=== PATIENT | female | born 1985 | race Two or more races ===

== ENCOUNTER 2018-02-03 07:57 | Day surgery (SDC) | payer BC ==
[~2018-02-03] VITALS: Ht 154.9 cm; Wt 52.1 kg
[~2018-02-03 07:57] MED LIST: AMOX875T PO; BUPIVACAINE/PF 0.5% ONE; EPINEPHRINE 1 MG/ML, 1ML ONE; HYDR-3237 PO; LIDOCAINE/PF 0.5% ,50ML ONE
[2018-02-03] MEDS ORDERED: LACTATED RINGERS 1,000 ML IV SCH (08:02)
[2018-02-03] MEDS ORDERED: MIDAZOLAM 1 MG/ML, 2ML ONE (08:13)
[2018-02-03] MEDS ORDERED: DEXAMETHASONE 4 MG/ML, 1ML ONE (08:13)
[2018-02-03] MEDS ORDERED: KETOROLAC 30 MG/1 ML ONE ×2 (08:13)
[2018-02-03] MEDS ORDERED: PROPOFOL 10 MG/ML, 20ML ONE (08:13)
[2018-02-03] MEDS ORDERED: ONDANSETRON 2MG/ML, 2ML ONE (08:13)
[2018-02-03] MEDS ORDERED: LIDOCAINE-MPF 2% ,5ML ONE (08:13)
[2018-02-03] MEDS ORDERED: CEFAZOLIN 1,000 MG ONE (08:13)
[2018-02-03] MEDS ORDERED: FENTANYL PF 100 MCG/2ML ONE (08:13)
[2018-02-03 08:24] VITALS: BP 109/74
[2018-02-03] MEDS ORDERED: LABETALOL 5MG/ML, 20ML IV PRN (08:30)
[2018-02-03] MEDS ORDERED: PROMETHAZINE 25 MG/ML, 1ML IV PRN (08:30)
[2018-02-03] MEDS ORDERED: LORazepam 2 MG/ML, 1ML IVPush PRN (08:30)
[2018-02-03] MEDS ORDERED: FENTANYL PF 100 MCG/2ML IV PRN (08:30)
[2018-02-03] MEDS ORDERED: MIDAZOLAM 1 MG/ML, 2ML IV PRN (08:30)
[2018-02-03] MEDS ORDERED: hydrALAzine 20 MG/ML, 1ML IV PRN (08:30)
[2018-02-03] MEDS ORDERED: ALBUTEROL/IPRATROPIUM 2.5MG/0.5MG, 3 ML NPPB PRN (08:30)
[2018-02-03] MEDS ORDERED: GABAPENTIN 300 MG CAPSULE PO ONE (08:30)
[2018-02-03] MEDS ORDERED: PROMETHAZINE 12.5 MG SUPP PR PRN (08:30)
[2018-02-03] MEDS ORDERED: ALBUTEROL SULFATE 2.5 MG/3 ML NPPB PRN (08:30)
[2018-02-03] MEDS ORDERED: DIAZEPAM 5 MG/ML, 2ML IVPush PRN (08:30)
[2018-02-03] MEDS ORDERED: METOCLOPRAMIDE 5 MG/ML, 2ML IV PRN (08:30)
[2018-02-03] MEDS ORDERED: MEPERIDINE/PF 25MG/0.5ML IVPush PRN (08:30)
[2018-02-03] MEDS ORDERED: ONDANSETRON 2MG/ML, 2ML IVPush PRN (08:30)
[2018-02-03] MEDS ORDERED: OXYcodone 5 MG/5 ML ORAL.SOL UDC PO PRN (08:30)
[2018-02-03] MEDS ORDERED: morphine SULFATE 10 MG/ML, 1ML IV PRN (08:30)
[2018-02-03] MEDS ORDERED: ONDANSETRON ODT 8 MG PO ONE (08:30)
[2018-02-03] MEDS ORDERED: OXYcodone IR 5MG TABLET PO ONE (08:30)
[2018-02-03] MEDS ORDERED: SCOPOLAMINE PATCH, 1.5MG PATCH.TD72 TD ONE (08:30)
[2018-02-03] MEDS ORDERED: ACETAMINOPHEN 500 MG TABLET PO ONE (08:30)
[2018-02-03 08:32] LABS: HCG UR SG 1.023 (1.003-1.030)
[2018-02-03] MEDS ORDERED: AMOXICILLIN/CLAV 875-125MG TABLET PO SCH (09:00)
== END 2018-02-03 12:05 ==
LOC: OUT 07:57 → MERGE 16:00
PROVIDERS: ATTEND Orthopaedic Surgery
DX: S83.271A Complex tear of lateral meniscus, current injury, right knee, initial encounter (principal); X58.XXXA Exposure to other specified factors, initial encounter; Y93.89 Activity, other specified; Y92.89 Other specified places as the place of occurrence of the external cause; Y99.8 Other external cause status
CPT/HCPCS: 29881; 81025; J0171; J0690; J1100; J1885; J2001; J2250; J2405; J2704; J3010; J3490; J7120; Q0162

== ENCOUNTER 2018-02-05 20:52 | Inpatient (IN) | payer BC ==
[~2018-02-05] VITALS: Ht 154.9 cm; Wt 57.2 kg
[~2018-02-05 20:52] MED LIST changes: -BUPIVACAINE/PF 0.5% ONE; -EPINEPHRINE 1 MG/ML, 1ML ONE; -LIDOCAINE/PF 0.5% ,50ML ONE
[2018-02-05] MEDS ORDERED: ONDANSETRON ODT 4 MG ONE (21:28)
[2018-02-05] MEDS ORDERED: ONDANSETRON ODT 4 MG PO ONE (21:30)
[2018-02-05 21:38] LABS: BASOPHILS # (AUTO) 0.04 x10^3/uL (0-0.1); BASOPHILS % (AUTO) 1 % (0-1); EOSINOPHILS # (AUTO) 0.02 x10^3/uL (0-0.4); EOSINOPHILS % (AUTO) 0 % (1-7); LYMPHOCYTES # (AUTO) 1.14 x10^3/uL (1-3.4); LYMPHOCYTES % (AUTO) 21 % (22-44); MD NO; MEAN CORPUSCULAR HEMOGLOBIN 31.1 pg (27.0-34.8); MEAN CORPUSCULAR HGB CONC 34.5 g/dL (32.4-35.8); MEAN CORPUSCULAR VOLUME 90.3 fL (80-100); MEAN PLATELET VOLUME 7.5 fL (7.4-10.4); MONOCYTES # (AUTO) 0.45 x10^3/uL (0.2-0.8); MONOCYTES % (AUTO) 8 % (2-9); NEUTROPHILS # (AUTO) 3.88 x10^3/uL (1.8-6.8); NEUTROPHILS % (AUTO) 70 % (42-75); PLATELET COUNT 279 x10^3/uL (130-400); RED BLOOD COUNT 3.97 x10^6/uL (3.82-5.3); RED CELL DISTRIBUTION WIDTH 13.4 % (9.6-15.2)
[2018-02-05 21:48] LABS: ALBUMIN 3.7 g/dL (3.4-5.0); ANION GAP 9 mmol/L (5-15); CALCIUM 8.6 mg/dL (8.5-10.1); CHLORIDE 108 mmol/L (98-107)
[2018-02-05 21:52] LABS: ALKALINE PHOSPHATASE 118 U/L (45-117); BILIRUBIN,TOTAL 0.7 mg/dL (0.2-1.0); TOTAL PROTEIN 7.5 g/dL (6.4-8.2)
[2018-02-05 21:56] LABS: ALANINE AMINOTRANSFERASE 1222 U/L (12-78)
[2018-02-05 22:14] LABS: ACETAMINOPHEN < 2 mcg/mL (10-30)
[2018-02-05] MEDS ORDERED: METOCLOPRAMIDE 5 MG/ML, 2ML ONE (22:14)
[2018-02-05] MEDS ORDERED: SODIUM CHLORIDE 0.9% 1,000ML IVBOLUS ONE (22:30)
[2018-02-05] MEDS ORDERED: METOCLOPRAMIDE 5 MG/ML, 2ML IVPush ONE (22:30)
[2018-02-06] MEDS ORDERED: SODIUM CHLORIDE 0.9% 1,000 ML IV ONE (00:38)
[2018-02-06] MEDS ORDERED: MORPHINE SULFATE 4 MG/ML, 1ML ONE (00:47)
[2018-02-06] MEDS ORDERED: DOCUSATE 100 MG CAPSULE PO PRN (01:00)
[2018-02-06] MEDS ORDERED: LABETALOL 5MG/ML, 20ML IVPush PRN (01:00)
[2018-02-06] MEDS ORDERED: morphine SULFATE 10 MG/ML, 1ML IVPush PRN (01:00)
[2018-02-06] MEDS ORDERED: BISACODYL 10 MG SUPP PR PRN (01:00)
[2018-02-06] MEDS ORDERED: ONDANSETRON 2MG/ML, 2ML IVPush PRN (01:00)
[2018-02-06] MEDS ORDERED: MORPHINE SULFATE 4 MG/ML, 1ML IVPush PRN (01:00)
[2018-02-06] MEDS ORDERED: hydrALAzine 20 MG/ML, 1ML IVPush PRN (01:00)
[2018-02-06] MEDS ORDERED: POLYETHYLENE GLYCOL 17 GM PACKET PO PRN (01:00)
[2018-02-06 01:50] VITALS: BP 104/71
[2018-02-06] MEDS: HEPARIN 5,000 UNITS/ML, 1ML SQ SCH ×3 (02:30→18:26)
[2018-02-06] MEDS: OXYcodone IR 5MG TABLET PO PRN ×4 (02:31→16:51)
[2018-02-06] MEDS: SODIUM CHLORIDE 0.9% 1,000 ML IV SCH ×2 (02:32→10:38)
[2018-02-06 02:39] LABS: FREE T4 (FREE THYROXINE) 1.31 ng/dL (0.76-1.46); HEMOGLOBIN A1C 5.8 % (4.2-6.3); THYROID STIMULATING HORMONE 2.09 mIU/L (0.358-3.740)
[2018-02-06 03:24] LABS: MICROSCOPIC AUTO
[2018-02-06 03:29] LABS: CULTURE INDICATED? YES
[2018-02-06 05:45] LABS: BASOPHILS # (AUTO) 0.03 x10^3/uL (0-0.1); BASOPHILS % (AUTO) 1 % (0-1); EOSINOPHILS # (AUTO) 0.03 x10^3/uL (0-0.4); EOSINOPHILS % (AUTO) 1 % (1-7); LYMPHOCYTES # (AUTO) 2.22 x10^3/uL (1-3.4); LYMPHOCYTES % (AUTO) 35 % (22-44); MD NO; MEAN CORPUSCULAR VOLUME 91.2 fL (80-100); MEAN PLATELET VOLUME 7.7 fL (7.4-10.4); MONOCYTES # (AUTO) 0.45 x10^3/uL (0.2-0.8); MONOCYTES % (AUTO) 7 % (2-9); NEUTROPHILS # (AUTO) 3.54 x10^3/uL (1.8-6.8); NEUTROPHILS % (AUTO) 56 % (42-75); PLATELET COUNT 256 x10^3/uL (130-400); RED BLOOD COUNT 3.53 x10^6/uL (3.82-5.3); RED CELL DISTRIBUTION WIDTH 13.4 % (9.6-15.2)
[2018-02-06 05:56] LABS: CHLORIDE 112 mmol/L (98-107)
[2018-02-06 06:19] LABS: ALANINE AMINOTRANSFERASE 1091 U/L (12-78); ALBUMIN 2.9 g/dL (3.4-5.0); ALKALINE PHOSPHATASE 115 U/L (45-117); ANION GAP 8 mmol/L (5-15); BILIRUBIN,TOTAL 0.8 mg/dL (0.2-1.0); CALCIUM 7.8 mg/dL (8.5-10.1); TOTAL PROTEIN 5.9 g/dL (6.4-8.2)
[2018-02-06 07:55] VITALS: BP 99/64
[2018-02-06] MEDS: CEFTRIAXONE PMX 1GM/50ML 50 ML IV SCH (10:38)
[2018-02-06 13:25] VITALS: BP 93/59
[2018-02-06 19:21] VITALS: BP 102/59
[2018-02-06] MEDS ORDERED: DIPHENHYDRAMINE 25 MG CAPSULE PO ONE (21:30)
[2018-02-07 02:00] VITALS: BP 99/63
[2018-02-07] MEDS: HEPARIN 5,000 UNITS/ML, 1ML SQ SCH ×2 (02:43→11:14)
[2018-02-07] MEDS: OXYcodone IR 5MG TABLET PO PRN (02:45)
[2018-02-07 04:39] LABS: BASOPHILS # (AUTO) 0.03 x10^3/uL (0-0.1); BASOPHILS % (AUTO) 1 % (0-1); EOSINOPHILS # (AUTO) 0.11 x10^3/uL (0-0.4); EOSINOPHILS % (AUTO) 2 % (1-7); LYMPHOCYTES # (AUTO) 3.26 x10^3/uL (1-3.4); LYMPHOCYTES % (AUTO) 55 % (22-44); MD NO; MEAN CORPUSCULAR HEMOGLOBIN 31.9 pg (27.0-34.8); MEAN CORPUSCULAR HGB CONC 34.6 g/dL (32.4-35.8); MEAN CORPUSCULAR VOLUME 92.2 fL (80-100); MEAN PLATELET VOLUME 7.6 fL (7.4-10.4); MONOCYTES % (AUTO) 7 % (2-9); NEUTROPHILS # (AUTO) 2.18 x10^3/uL (1.8-6.8); NEUTROPHILS % (AUTO) 37 % (42-75); PLATELET COUNT 262 x10^3/uL (130-400); RED BLOOD COUNT 3.63 x10^6/uL (3.82-5.3); RED CELL DISTRIBUTION WIDTH 13.7 % (9.6-15.2)
[2018-02-07 04:54] LABS: CHLORIDE 110 mmol/L (98-107)
[2018-02-07 05:02] LABS: ALANINE AMINOTRANSFERASE 752 U/L (12-78); ALKALINE PHOSPHATASE 108 U/L (45-117); ANION GAP 7 mmol/L (5-15); BILIRUBIN,TOTAL 0.3 mg/dL (0.2-1.0); CALCIUM 8.6 mg/dL (8.5-10.1); CHOL/HDL RATIO 2.5; CHOLESTEROL, TOTAL 166 mg/dL (140-239); CREATININE 0.59 mg/dL (0.55-1.02); HDL CHOL % 40 % (28-40); HDL CHOLESTEROL (DIRECT) 66 mg/dL (40-60); LDL CHOLESTEROL,CALCULATED 83 mg/dL (54-169); LDL/HDL RATIO 1.3 (0.5-3.0); TOTAL PROTEIN 6.4 g/dL (6.4-8.2); TRIGLYCERIDES 84 mg/dL (50-200); VLDL CHOLESTEROL 17 mg/dL (0-25)
[2018-02-07] MEDS ORDERED: CEFD300C37 PO (07:54)
[2018-02-07 07:59] VITALS: BP 124/56
[2018-02-07] MEDS: CEFTRIAXONE PMX 1GM/50ML 50 ML IV SCH (09:59)
== END 2018-02-07 13:22 | disposition home or self-care (01) | DRG 918 ==
LOC: ED 22:07 → EDIP 02-06 00:38 → 4WST 02-06 01:49
PROVIDERS: ADMIT Internal Medicine; ATTEND Internal Medicine
DX: T88.59XA Other complications of anesthesia, initial encounter (principal); E44.0 Moderate protein-calorie malnutrition; N39.0 Urinary tract infection, site not specified; R74.0 Nonspecific elevation of levels of transaminase and lactic acid dehydrogenase [LDH]; R94.5 Abnormal results of liver function studies; K80.20 Calculus of gallbladder without cholecystitis without obstruction; T41.45XA Adverse effect of unspecified anesthetic, initial encounter; Y84.9 Medical procedure, unspecified as the cause of abnormal reaction of the patient, or of later complication, without mention of misadventure at the time of the procedure; Y92.89 Other specified places as the place of occurrence of the external cause
CPT/HCPCS: 36415; 76700; 80053; 80061; 80307; 81001; 83036; 83690; 83735; 84439; 84443; 84703; 85025; 86705; 86706; 86709; 86803; 87086; 87340; 96361; 96374; 96375; J0696; J1644; Q0162; J2765; J7030; Q0163

== ENCOUNTER 2020-06-15 11:53 | Emergency (ER) | payer BC ==
[~2020-06-15] VITALS: Ht 154.9 cm; Wt 51.7 kg
[~2020-06-15 11:53] MED LIST changes: +CEFD300C37 PO
[2020-06-15 11:56] VITALS: BP 120/91
== END 2020-06-15 12:48 | disposition home or self-care (01) ==
LOC: ED 12:27
DX: J02.9 Acute pharyngitis, unspecified (principal); Z20.828 Contact with and (suspected) exposure to other viral communicable diseases; R50.9 Fever, unspecified; R06.02 Shortness of breath; R51 Headache; R05 Cough
CPT/HCPCS: 36415; 87635; 99283

== ENCOUNTER 2021-02-23 19:19 | Outpatient (CLI) | payer OTHER ==
[~2021-02-23] VITALS: Ht 154.9 cm; Wt 65.0 kg
[2021-02-23 19:47] VITALS: BP 110/65
== END 2021-02-23 20:15 | disposition home or self-care (01) ==
LOC: LDOP 19:19
PROVIDERS: ATTEND Obstetrics & Gynecology
DX: O42.92 Full-term premature rupture of membranes, unspecified as to length of time between rupture and onset of labor (principal); Z3A.37 37 weeks gestation of pregnancy
CPT/HCPCS: 59025; 84112; 89060; Q0114

== ENCOUNTER 2021-03-08 21:12 | Outpatient (CLI) | payer OTHER ==
[~2021-03-08] VITALS: Ht 154.9 cm; Wt 65.9 kg
[2021-03-08 22:00] VITALS: BP 129/80
[2021-03-08] MEDS ORDERED: OXYcodone/APAP 10/325MG TABLET ONE (22:46)
[2021-03-08] MEDS ORDERED: OXYcodone/APAP 10/325MG TABLET PO ONE (23:00)
== END 2021-03-08 23:53 | disposition home or self-care (01) ==
LOC: LDOP 21:12
PROVIDERS: ATTEND Obstetrics & Gynecology
DX: O09.93 Supervision of high risk pregnancy, unspecified, third trimester (principal); O46.93 Antepartum hemorrhage, unspecified, third trimester; Z3A.39 39 weeks gestation of pregnancy
CPT/HCPCS: 59025

== ENCOUNTER 2021-03-10 00:59 | Inpatient (IN) | payer OTHER ==
[~2021-03-10] VITALS: Ht 154.9 cm; Wt 67.0 kg
[2021-03-10] MEDS ORDERED: SODIUM CHLORIDE FLUSH 10ML SYR IVF PRN (01:30)
[2021-03-10] MEDS ORDERED: OXYTOCIN 30U/ 0.9% NaCL 500ML 500 ML IV ONE (01:30)
[2021-03-10] MEDS ORDERED: SODIUM CITRATE/CITRIC ACID 30 ML UDC PO PRN (01:30)
[2021-03-10] MEDS ORDERED: FENTANYL PF 100 MCG/2ML IVPush PRN (01:30)
[2021-03-10] MEDS ORDERED: TERBUTALINE 1 MG/ML, 1ML IVPush PRN (01:30)
[2021-03-10] MEDS ORDERED: FENTANYL PF 100 MCG/2ML IV PRN (01:30)
[2021-03-10] MEDS ORDERED: CALCIUM CARBONATE 500 MG TAB.CHEW PO PRN (01:30)
[2021-03-10] MEDS ORDERED: ALUMINUM/MAG/SIMETHICONE 30 ML UDC PO PRN (01:30)
[2021-03-10] MEDS ORDERED: D5%-LACTATED RINGERS 1,000 ML IV SCH (01:30)
[2021-03-10] MEDS ORDERED: PENICILLIN GK 5,000,000 UNITS in DEXTROSE 5% 100 ML IVPB ONE (01:30)
[2021-03-10] MEDS ORDERED: TERBUTALINE 1 MG/ML, 1ML SQ PRN (01:30)
[2021-03-10] MEDS ORDERED: METOCLOPRAMIDE 5 MG/ML, 2ML IVPush PRN (01:30)
[2021-03-10] MEDS ORDERED: PENICILLIN GK 2,500,000 UNITS in DEXTROSE 5% 100 ML IVPB SCH (02:00)
[2021-03-10 02:02] LABS: BASOPHILS % (AUTO) 1 % (0-1); EOSINOPHILS % (AUTO) 1 % (1-7); LYMPHOCYTES % (AUTO) 10 % (22-44); MD NO; MEAN CORPUSCULAR HEMOGLOBIN 32.5 pg (27.0-34.8); MEAN CORPUSCULAR HGB CONC 34.7 g/dL (32.4-35.8); MEAN PLATELET VOLUME 7.7 fL (7.4-10.4); MONOCYTES % (AUTO) 6 % (2-9); NEUTROPHILS % (AUTO) 83 % (42-75); PLATELET COUNT 250 x10^3/uL (130-400); RED BLOOD COUNT 3.94 x10^6/uL (3.82-5.3); RED CELL DISTRIBUTION WIDTH 14.6 % (9.6-15.2)
[2021-03-10] MEDS: LACTATED RINGERS 1,000 ML IV SCH ×2 (02:07→10:58)
[2021-03-10] MEDS ORDERED: BUPIVACAINE 0.25% ONE (02:34)
[2021-03-10] MEDS ORDERED: FENTANYL/BUPIV./NS/PF 250 ML EPIDCONT ONE (02:34)
[2021-03-10] MEDS ORDERED: NALOXONE 0.4 MG/ML, 1ML IVPush PRN (03:00)
[2021-03-10] MEDS ORDERED: ONDANSETRON 2MG/ML, 2ML IVPush PRN (03:00)
[2021-03-10] MEDS ORDERED: LACTATED RINGERS 1,000 ML IV SCH (03:00)
[2021-03-10] MEDS ORDERED: EPHEDRINE 50 MG/ML, 1ML IVPush PRN (03:00)
[2021-03-10] MEDS ORDERED: DIPHENHYDRAMINE 50 MG/ML, 1ML IVPush PRN (03:00)
[2021-03-10] MEDS ORDERED: FENTANYL/BUPIV./NS/PF 250 ML EPIDCONT SCH (03:00)
[2021-03-10] MEDS ORDERED: LACTATED RINGERS 1,000 ML IVBOLUS PRN (03:00)
[2021-03-10] MEDS ORDERED: ACETAMINOPHEN 325 MG TABLET ONE (04:15)
[2021-03-10] MEDS ORDERED: MISOPROSTOL 200 MCG TABLET ONE (07:07)
[2021-03-10] MEDS ORDERED: LIDOCAINE 1%, 20ML ONE (07:07)
[2021-03-10] MEDS ORDERED: OXYTOCIN 30U/ 0.9% NaCL 500ML 500 ML ONE (07:07)
[2021-03-10] MEDS ORDERED: SODIUM CITRATE/CITRIC ACID 15 ML UDC ONE (07:40)
[2021-03-10] MEDS ORDERED: ONDANSETRON 2MG/ML, 2ML IV PRN (10:30)
[2021-03-10] MEDS ORDERED: OXYTOCIN 30U/ 0.9% NaCL 500ML 500 ML IV SCH (10:30)
[2021-03-10] MEDS ORDERED: DOCUSATE 100 MG CAPSULE PO PRN (10:30)
[2021-03-10] MEDS ORDERED: MISOPROSTOL 200 MCG TABLET PR PRN (10:30)
[2021-03-10] MEDS ORDERED: SIMETHICONE 80 MG CHEW TAB PO PRN (10:30)
[2021-03-10] MEDS ORDERED: METHYLERGONOVINE 0.2 MG/ML IM PRN (10:30)
[2021-03-10] MEDS ORDERED: OXYcodone/APAP 5/325MG TABLET PO PRN (10:30)
[2021-03-10] MEDS ORDERED: PRENATAL VIT/IRON/FA 1 EACH TABLET PO SCH (10:30)
[2021-03-10 12:35] VITALS: BP 114/76
[2021-03-10] MEDS: IBUPROFEN 600 MG TABLET PO PRN (12:53)
[2021-03-10 16:30] VITALS: BP 110/75
[2021-03-10 20:00] VITALS: BP 110/76
[2021-03-10 22:01] LABS: BASOPHILS % (AUTO) 0 % (0-1); EOSINOPHILS % (AUTO) 1 % (1-7); LYMPHOCYTES % (AUTO) 14 % (22-44); MEAN CORPUSCULAR HEMOGLOBIN 32.7 pg (27.0-34.8); MEAN CORPUSCULAR HGB CONC 34.3 g/dL (32.4-35.8); MEAN PLATELET VOLUME 7.6 fL (7.4-10.4); MONOCYTES % (AUTO) 5 % (2-9); NEUTROPHILS % (AUTO) 80 % (42-75); PLATELET COUNT 211 x10^3/uL (130-400); RED BLOOD COUNT 3.58 x10^6/uL (3.82-5.3); RED CELL DISTRIBUTION WIDTH 14.6 % (9.6-15.2)
[2021-03-10 22:05] LABS: MD NO
[2021-03-11] VITALS: BP 110/76
[2021-03-11 05:00] VITALS: BP 105/64
[2021-03-11 08:30] VITALS: BP 103/70
[2021-03-11] MEDS: IBUPROFEN 600 MG TABLET PO PRN (09:00)
[2021-03-11] MEDS ORDERED: IBUP-1222 PO (09:28)
== END 2021-03-11 12:30 | disposition home or self-care (01) | DRG 807 ==
LOC: LDOP 00:59 → EDIP 01:29 → LDIP 01:35 → 2NW 12:02
PROVIDERS: ADMIT Obstetrics & Gynecology; ATTEND Obstetrics & Gynecology
PROC: 10E0XZZ Delivery of Products of Conception, External Approach (ICD-10-PCS; principal; 2021-03-10)
PROC: 3E0R3BZ Introduction of Anesthetic Agent into Spinal Canal, Percutaneous Approach (ICD-10-PCS; 2021-03-10)
PROC: 00HU33Z Insertion of Infusion Device into Spinal Canal, Percutaneous Approach (ICD-10-PCS; 2021-03-10)
DX: O34.211 Maternal care for low transverse scar from previous cesarean delivery (principal); Z37.0 Single live birth; O69.3XX0 Labor and delivery complicated by short cord, not applicable or unspecified; Z3A.39 39 weeks gestation of pregnancy; Z80.3 Family history of malignant neoplasm of breast; Z20.822 Contact with and (suspected) exposure to COVID-19; O76 Abnormality in fetal heart rate and rhythm complicating labor and delivery
CPT/HCPCS: 36415; J3490; 85025; 86592; 86850; 86900; 87635; G0378; J2540; J2590; J3010; J7120

== ENCOUNTER 2021-05-28 15:04 | Emergency (ER) | payer OTHER ==
[~2021-05-28] VITALS: Ht 154.9 cm; Wt 57.0 kg
[~2021-05-28 15:04] MED LIST changes: +IBUP-1222 PO
[2021-05-28 15:27] VITALS: BP 153/80
== END 2021-05-28 16:11 | disposition left against medical advice (07) ==
LOC: ED 16:05
DX: R50.9 Fever, unspecified (principal); R11.2 Nausea with vomiting, unspecified; Z53.21 Procedure and treatment not carried out due to patient leaving prior to being seen by health care provider